=== PATIENT | male | born 1970 | race Caucasian/White ===

== ENCOUNTER 2016-10-21 13:11 | Emergency (ER) | payer OTHER ==
[~2016-10-21] VITALS: Ht 188 cm; Wt 152.0 kg
[~2016-10-21 13:11] MED LIST: BENICAR HCT 201 EACH PO; FLOMAX0.4 M1 PO; GLIPIZIDE ER2.5 M1 PO; KETOROLAC TROME10 M1 PO; METFORMIN HCL500 M3 PO; PERCOCET 5-3251 EACH PO; PRAVASTATIN SOD10 M2 PO; VIAGRA100 M1 PO; ZOFRAN ODT4 M1 SL; ZOFRAN4 M2 PO
--- NOTE | 2016-10-21 13:27 | ED GI/GU/ABDOMINAL COMPLAINT ---
History of Present Illness General Chief Complaint: Abdominal Pain/Flank Pain Stated Complaint: ?KIDNEY STONES Source: patient, old records Exam Limitations: no limitations Vital Signs & Intake/Output Vital Signs & Intake/Output ED Intake and Output 10/22 0000 10/21 1200 Intake Total 1000 Output Total Balance 1000 Intake, IV 1000 Intake, Oral 0 Patient 335 lb Weight Allergies Coded Allergies: NO KNOWN ALLERGIES (07/07/16) Reconcile Medications Glipizide (Glipizide ER) 2.5 MG TAB.ER.24 1 TAB PO DAILY DM (Reported) Ketorolac Tromethamine 10 MG TABLET 1 TAB PO Q6P PRN KIDNEY STONE PATIENT TREATED WITH iv tORADOL IN THE EMERGENCY DEPARTMENT Metformin HCl 500 MG TABLET 1 TAB PO BID DM (Reported) Olmesartan/Hydrochlorothiazide (Benicar Hct 20-12.5 MG Tablet) 20 MG-12.5 MG TABLET 1 TAB PO DAILY BP (Reported) Ondansetron (Zofran Odt) 4 MG TAB.RAPDIS 1 TAB SL TID PRN nausea Ondansetron (Zofran Odt) 4 MG TAB.RAPDIS 1 TAB SL TID PRN NAUSEA Ondansetron HCl (Zofran) 4 MG TABLET 1 TAB PO Q6 PRN NAUSEA/VOMITING Oxycodone HCl/Acetaminophen (Percocet 5-325 MG Tablet) 1 EACH TABLET 1-2 TAB PO Q6P PRN pain Oxycodone HCl/Acetaminophen (Percocet 5-325 MG Tablet) 5 MG-325 MG TABLET 1 TAB PO 4XDP PRN PAIN TEN...[id number] Oxycodone HCl/Acetaminophen (Percocet 5-325 MG Tablet) 5 MG-325 MG TABLET 1 TAB PO BID PRN PAIN Pravastatin Sodium 10 MG TABLET 1 TAB PO DAILY CHOLESTEROL (Reported) Sildenafil Citrate (Viagra) 100 MG TABLET 1 TAB PO DAILY NEEDED ERECTILE DYSFUNCTION (Reported) 1 hour before sexual activity Tamsulosin HCl (Flomax) 0.4 MG CAP.ER.24H 1 CAP PO DAILY KIDNEY STONE Triage Note: LEFT GROIN PAIN RADIATING INTO LEFT FLANK SINCE 0800. +N/V. STATES HX OF KIDNEY STONES AND FEELS THE SAME Triage Nurses Notes Reviewed? yes Onset: Abrupt Duration: hour(s): (3), constant, waxing and waning Timing: recent history Quality/Severity: aching, moderate, sharpness, severe, throbbing Severity Numbers: 10 Location: left flank, left lower quadrant Radiation: flank Activities at Onset: none Prior Abdominal Problems: similar symptoms No Modifying Factors: none Associated Symptoms: nausea/vomiting HPI: 46-year-old male with history of hypertension kidney stones presents to the ER today for evaluation complaining of left lower quadrant abdominal pain radiating to the left flank since 8:00 this morning associated with nausea and one episode of vomiting. Patient has history of kidney stones requiring lithotripsy in the past states this feels similar. Denies any fever chills hematuria dysuria. No diarrhea black or bloody stools. No chest pain shortness of breath no other modifying factors or associated symptoms. He is not taken anything for his symptoms. (BOWEN PITTMAN) Past History Travel History Traveled to [place] past 21 day No Medical History Any Pertinent Medical History? see below for history Neurological: NONE EENT: NONE Cardiovascular: hypertension Respiratory: NONE Gastrointestinal: NONE Hepatic: NONE Renal: KIDNEY STONES Musculoskeletal: NONE Psychiatric: NONE Endocrine: NONE Blood Disorders: NONE Cancer(s): NONE COOK CANDY/Reproductive: NONE Surgical History Surgical History: non-contributory Psychosocial History What is your primary language Setswana Tobacco Use: Never used ETOH Use: occasional use Illicit Drug Use: denies illicit drug use Family History Hx Contributory? No (BOWEN PITTMAN) Review of Systems Review of Systems Constitutional: Reports: see HPI. All Other Systems: Reviewed and Negative Comments Review of systems: See HPI, All other systems negative. Constitutional, no chills no fever, no malaise HEENT: No visual changes no sore throat no congestion Cardiovascular: No chest pain , no palpitation , Skin, no rashes, no change in skin Respiratory: No dyspnea no cough no sputum GI: No nausea no vomiting, no diarrhea, : No dysuria No hematuria, no frequency, no discharge Muscle skeletal: No joint pain, no joint swelling, no back pain, no neck pain, Neurologic: No numbness no headache Psych: No stress Heme/endocrine: No bruising no bleeding Immunology: No lymphadenopathy (BOWEN PITTMAN) Physical Exam Physical Exam General Appearance: well developed/nourished, alert, awake Gastrointestinal: normal bowel sounds Comments: Well-developed well-nourished person in no acute distress HEENT: Normal EENT exam; PERRL, EOMI, HEAD is atraumatic. moist mucous membranes. Neck: Supple, normal range of motion Back: Nontender, no CVA tenderness. Full range of motion Cardiovascular: Regular rate and rhythms no murmurs rubs Respiratory: Chest nontender.There were no bony deformities, no asymmetry. No respiratory distress. Patient speaking in full complete sentences. Breath sounds clear to auscultation bilaterally: NO W/R/R Abdomen: Soft, nontender nondistended, no appreciable organomegaly. Normal bowel sounds. No rebound/guarding, Extremity: No edema, full range of motion of extremities, Neuro: Alert oriented x3, motor sensory normal, There were no obvious focal neurologic abnormalities. Skin: No appreciable rash on exposed skin, skin is warm and dry. Psych: Mood and affect is normal, memory and judgment is normal. Core Measures ACS in differential dx? No Severe Sepsis Present: No Septic Shock Present: No (PARAM CULLEN,BOWEN) Progress Differential Diagnosis: AAA, appendicitis, biliary colic, bowel obstruction, cholecystitis, diverticulitis, gastritis, ischemic bowel, inflamm bowel dis, orchitis, pancreatitis, peptic ulcer, PUD/GERD, ureterolithiasis, UTI/pyelo Plan of Care: Orders Procedure Date/time Status Saline Lock 10/21 1326 Active URINALYSIS 10/21 132 Complete COMPREHENSIVE METABOLIC PANEL 10/21 132 Complete CBC WITHOUT DIFFERENTIAL 10/21 1326 Complete Laboratory Tests 10/21/16 1450: Urine Color YEL, Urine Clarity CLEAR, Urine pH 5.5, Ur Specific [place] >= 1.030 , Urine Protein TRACE H, Urine Ketones NEG, Urine Nitrite NEG, Urine Bilirubin NEG, Urine Urobilinogen 0.2, Ur Leukocyte Esterase NEG, Ur Microscopic SEDIMENT EXAMINED, Urine RBC PACKD H, Ur Epithelial Cells FEW, Urine Crystals 3+ CA OX H, Urine Hemoglobin MOD H, Urine Glucose NEG 10/21/16 1335: Anion Gap 15, Estimated GFR 59 L, BUN/Creatinine Ratio 16.2, Glucose 194 H, Calcium 10.1, Total Bilirubin 0.6, AST 51, ALT 95 H, Alkaline Phosphatase 81, Total Protein 7.7, Albumin 5.0, Globulin 2.7, Albumin/Globulin Ratio 1.9, CBC w Diff NO MAN DIFF REQ, RBC 4.74, MCV 85.9, MCH 29.2, RDW 14.1, MPV 7.0 L, Gran % 82.9 H, Lymphocytes % 10.9 L, Monocytes % 5.4, Eosinophils % 0.6, Basophils % 0.2, Absolute Granulocytes 7.4 H, Absolute Lymphocytes 1.0 L, Absolute Monocytes 0.5, Absolute Eosinophils 0.1, Absolute Basophils 0, PUBS MCHC 34.0 LABS ORDERED, MEDICATED WITH TORADOL 30MG IV ZOFRAN 4MG IV US ORDERED CT UNAVAIALBE AT THIS TIME 10/21/2016 2:51:01 PM on repeat evaluation patient is resting in no apparent distress denies pain at this time there and I discussed with the patient always lab results to date and ultrasound findings. Patient again denies any pain. He feels comfortable plan. Advise close follow-up with his urologist Dr. Bradford. I discussed with the patient at length all of their results. I had an extensive conversation regarding need for close follow up with their primary care physician this week as well as return precautions. I answered all of their questions, they feel comfortable with the plan and follow-up care. I discussed the medications that they will receive with the patient. I gave them signs and symptoms that could indicate an adverse reaction. I have advised them to limit their activities until they can see how they respond to the medication. (PARAM CULLEN,BOWEN) Diagnostic Imaging: Viewed by Me: Ultrasound. Discussed w/RAD: Ultrasound. Radiology Impression: PATIENT: CLAIRE HERNANDEZ PRESENT AGE: 46 PATIENT ACCOUNT NO: [id number] : 68 LOCATION: [facility] ORDERING PHYSICIAN: BOWEN CULLEN SERVICE DATE: 10/21/16 EXAM TYPE: US - US- RENAL/KIDNEY EXAMINATION: US RETROPERITONEAL COMPLETE (RENAL) CLINICAL INFORMATION: Left flank pain. History of stones. COMPARISON: CT scan of the abdomen and pelvis 07/04/2016. TECHNIQUE: Real-time imaging of the kidneys and bladder. FINDINGS: RIGHT KIDNEY: 14.9 x 7.1 x 8.8 cm (SAG x AP x TRV). The kidney is normal in size, contour, and echogenicity. Renal cortical thickness is normal. No calculi or focal parenchymal lesions. No hydronephrosis. LEFT KIDNEY: 15.9 x 7.5 x 8.6 cm (SAG x AP x TRV). The kidney is normal in size, contour, and echogenicity. Renal cortical thickness is normal. There is no hydronephrosis and there are no focal parenchymal abnormalities. There are 2 echogenic foci at the upper pole of the left kidney, consistent with calculi. The one measures 1.0 x 0.5 x 0.9 cm, in the second measures 1.3 x 1.0 x 1.8 cm. BLADDER: Moderately well distended and normal. Bilateral ureteral jets are not demonstrated. Prevoid bladder volume is 120 mL. The prostate gland measures 4.0 x 2.9 x 2.3 cm IMPRESSION:. 1. There are 2 nonobstructive calculi at the upper pole of the left kidney. 2. There is no hydronephrosis. DICTATED BY: BARNEY CONLEY MD DATE/TIME DICTATED:10/21/161429 DRUM DRIER:JODY DATE/TIME TRANSCRIBED:1429 CONFIDENTIAL, DO NOT COPY WITHOUT APPROPRIATE AUTHORIZATION. < Electronically signed in Other Vendor System> SIGNED BY: BARNEY CONLEY MD 8 Initial ED EKG: none (BOWEN PITTMAN) Departure Departure Time of Disposition: 1529 Disposition: HOME OR SELF CARE Condition: Stable Clinical Impression Primary Impression: Kidney stones Referrals: MARIEL ROMERO,MYAH Barrientos (PCP/Family) EARLINE BRADFORD MD Additional Instructions: FOLLOW UP WITH UROLOGIST DR BRADFORD WHEN YOU RETURN HOME. ZOFRAN IF NEEDED FOR NAUSEA. TYLENOL OR IBUPROFEN 800MG EVERY 8 HOURS. PERCOCET FOR BREAKTHROUGH PAIN -agrees caution as this will make you drowsy no driving or drinking alcohol while taking. Return anytime sooner with any concerns worsening of her symptoms. Departure Forms: Customer Survey General Discharge Information Prescriptions: Current Visit Scripts Ondansetron (Zofran Odt) 1 TAB SL TID PRN NAUSEA #10 TAB Oxycodone HCl/Acetaminophen (Percocet 5-325 MG Tablet) 1 TAB PO BID PRN PAIN #10 TAB (BOWEN PITTMAN) PA/RELATIONSHIP BANKER Co-Sign Statement Statement: ED Attending supervision documentation- [] I saw and evaluated the patient. I have also reviewed all the pertinent lab results and diagnostic results. I agree with the findings and the plan of care as documented in the PA's/RELATIONSHIP BANKER's documentation. x I have reviewed the ED Record and agree with the PA's/RELATIONSHIP BANKER's documentation. [] Additions or exceptions (if any) to the PAs/RELATIONSHIP BANKER's note and plan are summarized below: [] (WALTER ROMERO,LINDY)
[2016-10-21 13:45] LABS: ABSOLUTE BASOPHIL COUNT 0 /CUMM (0.0-0.2); ABSOLUTE EOSINOPHIL COUNT 0.1 /CUMM (0.0-0.7); ABSOLUTE GRANULOCYTE CT 7.4 /CUMM (1.4-6.5); ABSOLUTE MONOCYTE COUNT 0.5 /CUMM (0.10-0.60); BASOPHIL % 0.2 % (0.0-2.0); EOSINOPHIL % 0.6 % (0-5); GRANULOCYTE % 82.9 % (42.2-75.2); HEMATOCRIT 40.7 % (42-52); MEAN CORPUSCULAR HGB 29.2 PG (27.0-31.0); MEAN CORPUSCULAR VOLUME 85.9 FL (80.0-94.0); PLATELET COUNT 222 /CUMM (130-400); RBC DISTRIBUTION WIDTH 14.1 % (11.5-14.5); RED BLOOD CELL CT 4.74 /CUMM (4.70-6.10); WHITE BLOOD CELL COUNT 8.9 /CUMM (4.8-10.8)
--- NOTE | 2016-10-21 14:38 | ULTRASOUND REPORT ---
EXAMINATION: US RETROPERITONEAL COMPLETE (RENAL) CLINICAL INFORMATION: Left flank pain. History of stones. COMPARISON: CT scan of the abdomen and pelvis 07/04/2016. TECHNIQUE: Real-time imaging of the kidneys and bladder. FINDINGS: RIGHT KIDNEY: 14.9 x 7.1 x 8.8 cm (SAG x AP x TRV). The kidney is normal in size, contour, and echogenicity. Renal cortical thickness is normal. No calculi or focal parenchymal lesions. No hydronephrosis. LEFT KIDNEY: 15.9 x 7.5 x 8.6 cm (SAG x AP x TRV). The kidney is normal in size, contour, and echogenicity. Renal cortical thickness is normal. There is no hydronephrosis and there are no focal parenchymal abnormalities. There are 2 echogenic foci at the upper pole of the left kidney, consistent with calculi. The one measures 1.0 x 0.5 x 0.9 cm, in the second measures 1.3 x 1.0 x 1.8 cm. BLADDER: Moderately well distended and normal. Bilateral ureteral jets are not demonstrated. Prevoid bladder volume is 120 mL. The prostate gland measures 4.0 x 2.9 x 2.3 cm IMPRESSION:. 1. There are 2 nonobstructive calculi at the upper pole of the left kidney. 2. There is no hydronephrosis.
[2016-10-21] MEDS ORDERED: ZOFRAN ODT4 M1 SL (15:07)
[2016-10-21] MEDS ORDERED: PERCOCET 5-3251 EACH PO (15:07)
[2016-10-21 15:29] VITALS: BP 115/65
== END 2016-10-21 15:30 ==
LOC: ERH 13:11
PROVIDERS: Physician Assistant Medical
DX: N20.0 Calculus of kidney (principal)
CPT/HCPCS: 76775; 81001; 96374; 96375; J1885; J2405